=== PATIENT | male | born 1955 | race Two or more races ===

== ENCOUNTER → 2023-04-30 06:40 | Day surgery (SDC) | payer MEDICARE, OTHER, SELFPAY | LOC: GI 06:40 | PROVIDERS: ATTENDING PHYSICIAN Internal Medicine Gastroenterology | DX: Z12.11 Encounter for screening for malignant neoplasm of colon (principal); Z86.010 Personal history of colon polyps; Z53.8 Procedure and treatment not carried out for other reasons | CPT/HCPCS: G0105 ==

== ENCOUNTER → 2023-05-01 06:37 | Day surgery (SDC) | payer MEDICARE, OTHER, SELFPAY | LOC: GI 06:37 | PROVIDERS: ATTENDING PHYSICIAN Specialist | DX: Z12.11 Encounter for screening for malignant neoplasm of colon (principal); Z86.010 Personal history of colon polyps; D12.3 Benign neoplasm of transverse colon | CPT/HCPCS: 45385; 88305 ==